=== PATIENT | male | born 1990 | race Caucasian/White ===

== ENCOUNTER 2025-01-14 07:29 | Emergency (ER) | payer BC, OTHER ==
[2025-01-14] MEDS: HYDROmorphone 2 MG/ML SDV IM ONE (07:57)
[2025-01-14] MEDS: Diphtheria,Pertussis(Acell),Tetanus Vaccine 0.5 ML Syringe IM ONE (07:57)
[2025-01-14] MEDS: ceFAZolin 1 GM Vial IM STA (10:11)
== END 2025-01-14 09:56 ==
LOC: FB.ED 07:29
DX: S62.633B Displaced fracture of distal phalanx of left middle finger, initial encounter for open fracture (principal); W23.0XXA Caught, crushed, jammed, or pinched between moving objects, initial encounter
CPT/HCPCS: 36415; 73140; 80320; 90471; 90715; 96372; 99000; 99284; J0690; J1171; G0480